=== PATIENT | female | born 1990 | race Caucasian/White ===

== ENCOUNTER 2017-08-06 14:53 | Emergency (ER) | payer OTHER, MEDICAID ==
[~2017-08-06] VITALS: Ht 170.2 cm; Wt 81.7 kg
[~2017-08-06 14:53] MED LIST: ACETAMINOPHEN-1 EAC1 PO; AMITRIPTYLINE H25 M2 PO; BIOTIN1 MG PO; CLONAZEPAM 0.50.5 M1 PO; FOLIC ACID1 MG PO; HYDROCODONE-AP1 EAC6 PO; PHENERGAN 25 MG25 M1 PO; RISPERIDONE 00.25 MG PO; SERTRALINE HCL50 MG PO; VITAMIN D2000 UNIT PO
[2017-08-06 15:18] LABS: URINE BILIRUBIN NEGATIVE (Negative); URINE BLOOD 1+ (Negative); URINE CLARITY CLEAR; URINE COLOR YELLOW; URINE GLUCOSE-RANDOM NEGATIVE (Negative); URINE KETONES NEGATIVE (Negative); URINE LEUKOCYTES-REFLEX NEGATIVE (Negative); URINE NITRITE-REFLEX NEGATIVE (Negative); URINE PROTEIN NEGATIVE (Negative); URINE SPECIFIC GRAVITY <= 1.005 (1.005-1.030); URINE UROBILINOGEN 0.2 E.U./dl (0.2-1.0)
[2017-08-06 15:24] LABS: MUCUS None Seen strn/LPF (None Seen); SQUAMOUS 0-3 Few /LPF (0-3)
[2017-08-06 15:25] LABS: BACTERIA-REFLEX None Seen /HPF (None Seen); CASTS None Seen /LPF (None Seen); CRYSTALS None Seen /LPF (None Seen); URINE RBC 0-2 Rare /HPF (0-2); URINE WBC-REFLEX 0-5 Rare /HPF (0-5)
[2017-08-06 15:47] LABS: ABSOLUTE EOSINOPHILS 0.1 thou/uL (0.0-0.7); ABSOLUTE LYMPHOCYTES 1.6 thou/uL (0.8-5.3); ABSOLUTE MONOCYTES 0.6 thou/uL (0.0-1.2); ABSOLUTE NEUTROPHILS 2.4 thou/uL (1.6-8.1); BASOPHILS 0.9 %; EOSINOPHILS 1.9 %; HEMATOCRIT 31.5 % (37.0-47.0); HEMOGLOBIN 9.6 gm/dL (12.0-15.0); LYMPHOCYTES 34.5 %; MCH 20.5 pg (26.0-34.0); MCHC 30.5 g/dL (28.0-37.0); MONOCYTES 12.5 %; NUCLEATED RBCS 0 /100WBC; PLATELET COUNT* 296 thou/uL (150-400); POLYS 50.2 %; RDW-CV 18.6 % (10.5-14.5); WBC 4.8 thou/uL (4.0-11.0)
[2017-08-06 15:57] LABS: CALCIUM 9.1 mg/dL (8.5-10.1); CREATININE 0.6 mg/dL (0.6-1.3); POTASSIUM 3.7 mmol/L (3.5-5.1)
[2017-08-06 16:02] LABS: ALBUMIN 3.7 g/dL (3.4-5.0); TOTAL BILIRUBIN 0.2 mg/dL (<0.1-1.0)
[2017-08-06] MEDS ORDERED: HYDROCODONE-AP1 EAC6 PO (16:31)
[2017-08-06 16:33] LABS: MICROCYTES 2+; PLATELET ESTIMATE ADEQUATE
[2017-08-06 16:34] LABS: LARGE PLATELETS OCCASIONAL
[2017-08-06 16:35] LABS: ANISOCYTOSIS 1+; HYPOCHROMASIA 2+
[2017-08-06 16:40] VITALS: BP 131/87
== END 2017-08-06 16:41 | disposition home or self-care (01) ==
LOC: M.ERS 14:53
PROVIDERS: Physician Assistant
DX: D64.9 Anemia, unspecified (principal); R10.32 Left lower quadrant pain; Z90.49 Acquired absence of other specified parts of digestive tract; Z91.040 Latex allergy status